=== PATIENT | female | born 1950 | race Two or more races ===

== ENCOUNTER 2022-04-22 10:21 | Inpatient (IN) | payer MEDICARE ==
[~2022-04-22] VITALS: Ht 157.5 cm; Wt 61.2 kg
--- NOTE | 2022-04-22 11:15 | NUR ---
URINE SAMPLE PROVIDED BY PT AND TAKEN BY PHLEB
--- NOTE | 2022-04-22 11:20 | NUR ---
RAC #20, BLOOD DRAWN AND COLLECTED BY PHLEB AT BEDSIDE.
[2022-04-22] MEDS ORDERED: IV NS 0.9% 1,000 ML BAG IV ONE (11:30)
[2022-04-22 11:47] LABS: BASOPHILS % (AUTO) 0.1 % (0.0-2.0); EOSINOPHILS % (AUTO) 0.3 % (0.0-6.0); HEMATOCRIT 38 % (33-45); HEMOGLOBIN 12.9 g/dL (11.5-14.8); LYMPHOCYTES # (AUTO) 1.1 K/uL (0.8-4.8); LYMPHOCYTES % (AUTO) 14.5 % (20.0-44.0); MEAN CORPUSCULAR HGB CONC 34 g/dl (31.0-36.0); MEAN CORPUSCULAR VOLUME 87 fL (82-100); MONOCYTES # (AUTO) 0.6 K/uL (0.1-1.30); NEUTROPHILS # (AUTO) 5.6 K/uL (1.8-8.9); NEUTROPHILS % (AUTO) 77.1 % (43.0-81.0); PLATELET COUNT (AUTO) 203 K/uL (150-450); RED BLOOD CELL COUNT(AUTO) 4.41 MIL/uL (4.0-5.2); WHITE BLOOD COUNT (AUTO) 7.3 K/uL (4.3-11.0)
[2022-04-22 11:48] LABS: CALCIUM, SERUM 9.3 mg/dL (8.5-10.1); CARBON DIOXIDE 28 mmol/L (21-32); CHLORIDE 102 mmol/L (98-107); CREATININE 0.8 mg/dL (0.6-1.3); GLUCOSE 216 mg/dL (74-106); SODIUM SERUM 141 mmol/L (136-145); UREA NITROGEN, BLOOD 13 mg/dL (7-18)
[2022-04-22 11:55] LABS: POTASSIUM 2.6 mmol/L (3.5-5.1)
[2022-04-22] MEDS ORDERED: POTASSIUM CHLORIDE 20 MEQ TAB.PRT.SR PO ONE ×2 (12:00→12:06)
--- NOTE | 2022-04-22 12:15 | NUR ---
POTASSIUM PO GIVEN INDICATED, KAYLYNN WELL
--- NOTE | 2022-04-22 13:21 | NUR ---
[id number], dr morley aware
--- NOTE | 2022-04-22 13:25 | NUR ---
DR FOSTER SPEAKING W/ PT/ AT BEDSIDE
--- NOTE | 2022-04-22 13:27 | NUR ---
DR. PATEL SPEAKING WITH DR. FOSTER.
--- NOTE | 2022-04-22 13:28 | NUR ---
MOVE SHEET SUBMITTED.
[2022-04-22] MEDS ORDERED: ROSU20TA32 PO (13:35)
[2022-04-22] MEDS ORDERED: HYDR25TA4 PO (13:35)
[2022-04-22] MEDS ORDERED: LOSA50TA39 PO (13:35)
--- NOTE | 2022-04-22 13:39 | NUR ---
COVID SWAB COLLECTED AND SENT TO LAB
[2022-04-22] MEDS ORDERED: METO-357 PO (13:47)
--- NOTE | 2022-04-22 14:05 | NUR ---
DR FOSTER SPEAKING W/ DR EUBANKS. PER DR FOSTER, DR EUBANKS SAID OK FOR PATIENT TO STAY.
--- NOTE | 2022-04-22 16:38 | NUR ---
Dr Strong Here to see pt
[2022-04-22 16:40] VITALS: BP 144/63
--- NOTE | 2022-04-22 16:53 | NUR ---
Report given to Luh for continuity of care
--- NOTE | 2022-04-22 16:55 | NUR ---
PATIENT ADMITTED TO TELEMETRY UNIT FROM ER. ALERT AND ORIENTED X4, COMMUNICATING WELL. ADMISSION DIAGNOSIS CHEST PAIN. NO PAIN AT THIS TIME. PT IS AMBULATORY, IV ACCESS RIGHT AC, FLUSHES WELL. Addendum: 04/22/22 at 1900 by BAILEE CANALES RN PATIENTS O2 96% ON RA, DIET FNS, ALL MEDS GIVEN ON TIME.
[2022-04-22 17:07] VITALS: BP 144/63
[2022-04-22 17:21] LABS: MAGNESIUM 2.4 mg/dL (1.8-2.4); PHOSPHORUS 3.3 mg/dL (2.5-4.9)
[2022-04-22 17:33] LABS: THYROID STIMULATING HORMONE 0.279 uIU/mL (0.358-3.74)
[2022-04-22] MEDS: METOPROLOL SUCCINATE 50 MG TAB.SR.24H PO SCH (17:50)
[2022-04-22] MEDS: POTASSIUM CHLORIDE 20 MEQ TAB.PRT.SR PO SCH ×2 (17:50→18:15)
[2022-04-22] MEDS: ASPIRIN 81 MG TAB.CHEW PO SCH (17:51)
[2022-04-22] MEDS: LOSARTAN POTASSIUM 50 MG TABLET PO SCH (17:51)
--- NOTE | 2022-04-22 17:55 | NUR ---
PATIENT REFUSE TO TAKE ASPIRIN, STATED IT UPSET HER STOMACH, MEDICATION RETURNED.
[2022-04-22] MEDS ORDERED: ZOLPIDEM TARTRATE 5 MG TABLET PO PRN (19:00)
[2022-04-22] MEDS ORDERED: ACETAMINOPHEN 325 MG TABLET PO PRN (19:00)
[2022-04-22] MEDS ORDERED: ALPRAZOLAM 0.25 MG TABLET PO PRN (19:00)
[2022-04-22] MEDS: PANTOPRAZOLE 40 MG TABLET.DR PO SCH (19:04)
--- NOTE | 2022-04-22 19:18 | NUR ---
PRODUCT LISTER CLOSING NOTE. PT SITTING IN BED ALERT AND ORIENTED X4, NO C/O AT THIS TIME, IV ACCESS RIGHT AC FLUSHES WELL, PO MEDS GIVEN, O2 AT 98% ON RA. ECHO CARDIOGRAM DONE AT BEDSIDE. SAFETY MEASURES IMPLEMENTED, BED LOCKED IN LOWEST POSITION, CALL LIGHT WITHIN REACH. WILL ENDORSE TO NIGHT NURSE.
--- NOTE | 2022-04-22 19:40 | NUR ---
ENVIRONMENTAL COMPLIANCE MANAGER OPENING NOTE RECEIVED PT IN BED, AWAKE. PT ALERT AND ORIENTED X4, ABLE TO VERBALIZE NEEDS. NO S/S OF RESPIRATORY DISTRESS NOTED. NO C/O PAIN AT THIS TIME. IV ACCESS TO RIGHT AC PATENT, AND FLUSHING WELL. O2 AT 97% ON RA, TOLERATING RA WELL. SAFETY MEASURES IMPLEMENTED, BED LOCKED IN LOWEST POSITION, CALL LIGHT WITHIN REACH, SR UP X2. WILL CONTINUE TO MONITOR PT.
[2022-04-22 20:00] VITALS: BP 121/64
[2022-04-22] MEDS: ENOXAPARIN SODIUM 60 MG/0.6 ML DISP.SYRIN SQ SCH (21:51)
[2022-04-23] VITALS: BP 116/63
[2022-04-23 04:00] VITALS: BP 130/70
--- NOTE | 2022-04-23 06:59 | NUR ---
ORTHOPEDIC SHOES SALESPERSON CLOSING NOTE LEFT PT SLEEPING IN BED. PT ALERT AND ORIENTED X4, ABLE TO VERBALIZE NEEDS. NO S/S OF RESPIRATORY DISTRESS NOTED. NO C/O PAIN AT THIS TIME. IV ACCESS TO RIGHT AC PATENT, AND FLUSHING WELL. O2 AT 95% ON RA, TOLERATING RA WELL. SAFETY MEASURES IMPLEMENTED, BED LOCKED IN LOWEST POSITION, CALL LIGHT WITHIN REACH, SR UP X2. WILL ENDORSE TO MORNING SHIFT NURSE FOR CONTINUITY OF CARE.
[2022-04-23 07:11] LABS: BASOPHILS % (AUTO) 0.1 % (0.0-2.0); EOSINOPHILS % (AUTO) 1.2 % (0.0-6.0); HEMATOCRIT 40 % (33-45); HEMOGLOBIN 13.2 g/dL (11.5-14.8); LYMPHOCYTES # (AUTO) 1.4 K/uL (0.8-4.8); LYMPHOCYTES % (AUTO) 28.9 % (20.0-44.0); MEAN CORPUSCULAR HGB CONC 33 g/dl (31.0-36.0); MEAN CORPUSCULAR VOLUME 87 fL (82-100); MONOCYTES # (AUTO) 0.4 K/uL (0.1-1.30); MONOCYTES % (AUTO) 7.9 % (2.0-12.0); NEUTROPHILS % (AUTO) 61.9 % (43.0-81.0); PLATELET COUNT (AUTO) 211 K/uL (150-450); RED BLOOD CELL COUNT(AUTO) 4.54 MIL/uL (4.0-5.2); WHITE BLOOD COUNT (AUTO) 4.8 K/uL (4.3-11.0)
[2022-04-23] MEDS: PANTOPRAZOLE 40 MG TABLET.DR PO SCH ×2 (07:30→09:53)
[2022-04-23 07:33] LABS: CREATININE 0.7 mg/dL (0.6-1.3); POTASSIUM 4.1 mmol/L (3.5-5.1)
[2022-04-23 07:38] LABS: ALBUMIN 3.4 g/dL (3.4-5.0); BILIRUBIN,TOTAL 0.5 mg/dL (0.2-1.0); MAGNESIUM 2.6 mg/dL (1.8-2.4); PHOSPHORUS 3.2 mg/dL (2.5-4.9); TOTAL PROTEIN, SERUM 6.9 g/dL (6.4-8.2)
[2022-04-23 08:00] VITALS: BP 111/66
--- NOTE | 2022-04-23 08:35 | NUR ---
RN NOTE CONSENT FOR CT ANGIO HEART WITH 3D OBTAINED AND PLACED IN CHART. NOTIFIED RADIOLOGY: TOLD TO HOLD ALL MEDICATIONS AND NPO STATUS UNTIL 929.
[2022-04-23] MEDS ORDERED: ATORVASTATIN 40 MG TABLET PO SCH (09:00)
--- NOTE | 2022-04-23 09:43 | NUR ---
RN NOTE PER RADIOLOGY, PATIENT DOES NOT NEED TO BE NPO, RESCHEDULED FOR 1230.
[2022-04-23] MEDS: METOPROLOL SUCCINATE 50 MG TAB.SR.24H PO SCH (09:54)
[2022-04-23] MEDS: ASPIRIN 81 MG TAB.CHEW PO SCH (09:54)
[2022-04-23] MEDS: LOSARTAN POTASSIUM 50 MG TABLET PO SCH (09:54)
[2022-04-23] MEDS: ENOXAPARIN SODIUM 60 MG/0.6 ML DISP.SYRIN SQ SCH (09:55)
[2022-04-23 12:00] VITALS: BP 121/48
--- NOTE | 2022-04-23 14:10 | NUR ---
RN NOTE PATIENT TRANSPORTED VIA WHEELCHAIR WITH SHANDA FOR CT ANGIO HEART WITH CONTRAST AT THIS TIME. CONSENT SIGNED AND PLACED IN CHART.
[2022-04-23] MEDS ORDERED: NITROGLYCERIN 0.4 MG/TAB BOTTLE SL ONE (14:30)
[2022-04-23] MEDS ORDERED: METOPROLOL TARTRATE INJ 5 MG/5 ML AMPUL IVP PRN (14:30)
[2022-04-23] MEDS ORDERED: IV NS 0.9% 250 ML IV ONE (14:31)
[2022-04-23] MEDS ORDERED: IOHEXOL-350 100 ML VIAL IV ONE (14:31)
[2022-04-23] MEDS ORDERED: CT SWABBABLE VALVE TRANS SET 1 EA INFUS.SET MC ONE (14:31)
--- NOTE | 2022-04-23 14:48 | NUR ---
RN NOTE PATIENT RETURNED TO ROOM FROM CT ACCOMPANIED BY SHANDA VIA WHEELCHAIR.
--- NOTE | 2022-04-23 15:12 | NUR ---
RN NOTE PATIENT REQUESTS TO RECEIVE PNEUMOCOCCAL VACCINE, APPROVED BY DR EUBANKS.
[2022-04-23] MEDS ORDERED: PNEUMOCOCCAL 23-VAL P-SAC VAC 0.5 ML VIAL SQ ONE (15:30)
[2022-04-23 16:00] VITALS: BP 116/63
--- NOTE | 2022-04-23 16:25 | NUR ---
answering service telephone operator note per dr darrius wilde to discharge home ,ct angio result reported to dr rizo
--- NOTE | 2022-04-23 16:28 | NUR ---
RN NOTE PATIENT DISCHARGED HOME WITH . ID BAND REMOVED. TELE MONITOR REMOVED IV ACCESS REMOVED, CATHETER TIP INTACT, NO S/S OF BLEEDING. ALL BELONGINGS ACCOUNTED FOR. DISCHARGE PACKET GIVEN TO PATIENT, PATIENT VERBALIZED UNDERSTANDING OF DISCHARGE INSTRUCTIONS. CHARGE NURSE AWARE.
== END 2022-04-23 16:48 | disposition home or self-care (01) | DRG 880 ==
LOC: ER 10:29 → TELE1 15:45
PROVIDERS: ADMIT Internal Medicine; ATTEND Internal Medicine
DX: F41.0 Panic disorder [episodic paroxysmal anxiety] (principal); F43.9 Reaction to severe stress, unspecified; I10 Essential (primary) hypertension; Z20.822 Contact with and (suspected) exposure to COVID-19; Z79.899 Other long term (current) drug therapy; E78.5 Hyperlipidemia, unspecified; L98.9 Disorder of the skin and subcutaneous tissue, unspecified
CPT/HCPCS: 36415; 71045-TC; 75574; 80048-TC; 80053-TC; 80061-TC; 83735-TC; 84100-TC; 84439-TC; 84443-TC; 84484-TC; 85025-TC; 87081-TC; 90732; 93307-TC; C9803; G0378; J1650; J7030; J7050; Q9967